=== PATIENT | female | born 1980 | race Caucasian/White ===

== ENCOUNTER 2020-10-13 14:00 | Day surgery (SDC) | payer OTHER ==
[~2020-10-13] VITALS: Ht 154.9 cm; Wt 56.7 kg
[2020-10-13] MEDS ORDERED: LACTATED RINGERS 1,000 ML IV SCH (14:30)
[2020-10-13] MEDS ORDERED: CHLORHEXIDINE 15 ML UDC PO ONE (14:30)
[2020-10-13 14:36] VITALS: BP 99/67
[2020-10-13] MEDS ORDERED: MIDAZOLAM 1 MG/ML, 2ML ONE (14:40)
[2020-10-13] MEDS ORDERED: FENTANYL PF 100 MCG/2ML ONE (14:40)
[2020-10-13] MEDS ORDERED: CHLORHEXIDINE 15 ML UDC ONE (14:40)
[2020-10-13] MEDS ORDERED: [UNRECOGNIZED DRUG - OTHER] (14:54)
[2020-10-13] MEDS ORDERED: MISOPROSTOL 200 MCG TABLET ONE (14:56)
[2020-10-13] MEDS ORDERED: OXYTOCIN 10 UNITS/ML, 1ML ONE (14:56)
[2020-10-13] MEDS ORDERED: SILVER NITRATE STICK TP ONE (14:57)
[2020-10-13] MEDS ORDERED: METHYLERGONOVINE 0.2 MG/ML IM ONE (14:57)
[2020-10-13] MEDS ORDERED: PROPOFOL 10 MG/ML, 20ML ONE (15:17)
[2020-10-13] MEDS ORDERED: ONDANSETRON 2MG/ML, 2ML ONE (15:21)
[2020-10-13] MEDS ORDERED: ACETAMINOPHEN 325 MG TABLET PO PRN (16:00)
[2020-10-13] MEDS ORDERED: DIAZEPAM 5 MG/ML, 2ML IVPush PRN (16:00)
[2020-10-13] MEDS ORDERED: HYDROmorphone 1 MG/ML, 1ML INJ IVPush PRN (16:00)
[2020-10-13] MEDS ORDERED: MEPERIDINE/PF 25MG/0.5ML IVPush PRN (16:00)
[2020-10-13] MEDS ORDERED: OXYcodone 5 MG/5 ML ORAL.SOL UDC PO PRN (16:00)
[2020-10-13] MEDS ORDERED: ONDANSETRON 2MG/ML, 2ML IVPush PRN (16:00)
[2020-10-13] MEDS ORDERED: LABETALOL 5MG/ML, 20ML IV PRN (16:00)
[2020-10-13] MEDS ORDERED: FENTANYL PF 100 MCG/2ML IV PRN (16:00)
[2020-10-13] MEDS ORDERED: ACETAMINOPHEN 650 MG/20.3 ML UDC ONE (16:42)
[2020-10-13] MEDS ORDERED: KETOROLAC 30 MG/1 ML ONE (17:37)
[2020-10-13] MEDS ORDERED: KETOROLAC 30 MG/1 ML IVPush PRN (18:00)
== END 2020-10-13 20:30 | disposition home or self-care (01) ==
LOC: OUT 14:00
PROVIDERS: ATTEND Obstetrics & Gynecology
DX: O73.1 Retained portions of placenta and membranes, without hemorrhage (principal); Z37.0 Single live birth; Z20.822 Contact with and (suspected) exposure to COVID-19; Z79.899 Other long term (current) drug therapy; Z88.2 Allergy status to sulfonamides
CPT/HCPCS: 59160; 76998; 81025; 87635; 88305; J1885; J2210; J2250; J2405; J2704; J3010; J2590